=== PATIENT | female | born 1985 | race American Indian/Alaskan Native ===

== ENCOUNTER 2017-07-02 09:47 | Emergency (ER) | payer MEDICAID, OTHER ==
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
[2017-07-02 11:59] VITALS: BP 102/68
== END 2017-07-02 11:32 | disposition home or self-care (01) ==
LOC: ED 09:47
DX: O09.892 Supervision of other high risk pregnancies, second trimester (principal); Z3A.22 22 weeks gestation of pregnancy; V49.49XA Driver injured in collision with other motor vehicles in traffic accident, initial encounter; Y93.89 Activity, other specified; Y92.89 Other specified places as the place of occurrence of the external cause; Y99.8 Other external cause status
CPT/HCPCS: 93005; 93010

== ENCOUNTER 2017-10-09 07:09 | Outpatient (CLI) | payer MEDICAID ==
[2017-10-09 07:48] VITALS: BP 106/53
[2017-10-09] MEDS ORDERED: LACTATED RINGERS 500 ML IV ONE (08:03)
[2017-10-09 08:45] LABS: Bilirubin,Urine NEG (Negative); Blood,Urine NEG (Negative); Calcium Oxalate Crystals,Urine 2+; Color,Urine Yellow (Yellow); Mucus,Urine 3+ /HPF
== END 2017-10-09 09:27 | disposition home or self-care (01) ==
LOC: TRG 07:09
PROVIDERS: ATTEND Obstetrics & Gynecology
DX: O47.03 False labor before 37 completed weeks of gestation, third trimester (principal); Z3A.36 36 weeks gestation of pregnancy
CPT/HCPCS: 59025; 81001

== ENCOUNTER 2017-11-03 12:20 | Outpatient (CLI) | payer MEDICAID ==
[2017-11-03 13:40] VITALS: BP 106/62
== END 2017-11-03 14:02 | disposition home or self-care (01) ==
LOC: TRG 12:20
PROVIDERS: ATTEND Obstetrics & Gynecology
DX: O48.0 Post-term pregnancy (principal); Z3A.40 40 weeks gestation of pregnancy
CPT/HCPCS: 59025

== ENCOUNTER 2017-11-08 08:43 | Inpatient (IN) | payer MEDICAID ==
[2017-11-08] MEDS ORDERED: BRETHINE SUB-Q PRN (12:07)
[2017-11-08] MEDS ORDERED: MINERAL OIL PO PRN (12:07)
[2017-11-08] MEDS ORDERED: BRETHINE IVP PRN (12:07)
[2017-11-08] MEDS ORDERED: SUBLIMAZE IV PRN (12:07)
[2017-11-08] MEDS ORDERED: ePHEDrine SULFATE IV PRN (12:07)
[2017-11-08] MEDS: PITOCin/NS 30 UNIT/500ML 30 UNITS/500 ML BAG IV SCH (12:54)
[2017-11-08] MEDS ORDERED: PITOCin/NS 30 UNIT/500ML 30 UNITS/500 ML BAG IV SCH (13:00)
[2017-11-08] MEDS ORDERED: PITOCin/NS 20 UNIT/1000ML DRIP 20 UNITS/1,000 ML BAG IV SCH (13:00)
[2017-11-08] MEDS ORDERED: XYLOCAINE 2% INFILTRATI ONE (13:00)
[2017-11-08] MEDS ORDERED: CERVIDIL VG PRN (13:30)
[2017-11-08 13:37] LABS: Hematocrit 35.3 % (30.3-42.9); Hemoglobin 11.5 gm/dl (10.1-14.3); Mean Corpuscular HGB Conc 33 % (30-34); Mean Corpuscular Hemoglobin 31 pg (28-32); Mean Corpuscular Volume 94 fl (79-97); Platelet Count 152 K/mm3 (140-440); Red Blood Count 3.74 M/mm3 (3.65-5.03); Red Cell Distribution Width 14.9 % (13.2-15.2)
[2017-11-08] MEDS: STADOL IV PRN ×2 (19:53→22:16)
[2017-11-09] MEDS: STADOL IV PRN (00:51)
[2017-11-09] MEDS: LACTATED RINGERS 1,000 ML IV SCH ×2 (02:22→03:08)
--- NOTE | 2017-11-09 03:25 | Anesthesia Consultation ---
Anesthesia Consult and Med Hx Date of service: 11/09/17 - Airway Anesthetic Teeth Evaluation: Good ROM Head & Neck: Adequate Mental/Hyoid Distance: Adequate Mallampati Class: Class I Intubation Access Assessment: Good - Pulmonary Exam CTA: Yes - Cardiac Exam Cardiac Exam: RRR - Pre-Operative Health Status ASA Pre-Surgery Classification: ASA2 Proposed Anesthetic Plan: Epidural, Spinal - Pulmonary Hx Asthma: No COPD: No Hx Pneumonia: No - Cardiovascular System Hx Hypertension: No - Central Nervous System Hx Seizures: No Hx Psychiatric Problems: No - Endocrine Hx Renal Disease: No Hx End Stage Renal Disease: No Hx Hypothyroidism: No Hx Hyperthyroidism: No - Hematic Hx Anemia: No Hx Sickle Cell Disease: No - Other Systems Hx Alcohol Use: No
[2017-11-09] MEDS ORDERED: ePHEDrine SULFATE IV PRN (03:26)
[2017-11-09] MEDS ORDERED: NARCAN 2 MG/2 ML IV PRN (03:26)
--- NOTE | 2017-11-09 03:27 | History and Physical Report ---
History of Present Illness Date of examination: 11/09/17 Date of admission: 11/08/17 08:43 Chief complaint: IOL for post dates History of present illness: This is a 32 yo at 41 weeks admitted to labor and delivery for IOL.She is a patient of [facility]. Hx of hsv no lesions noted on valtrex. she has been non complaiant and missed 5 weeks of care in the third trimester. GBS neg. 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 denies: smoking, alcohol abuse, prescription drug abuse - Obstetrical History Expected Date of Delivery: 10/31/17 Actual Gestation: 41 Week(s) 2 Day(s) : 7 Para: 2 Hx # Term Pregnancies: 2 Number of Pregnancies: 0 Spontaneous Abortions: 0 Induced : 4 Number of Living Children: 2 Medications and Allergies Allergies Allergy/AdvReac Type Severity Reaction Status Date / Time No Known Allergies Allergy Verified 03/27/16 15:50 Home Medications Medication Instructions Recorded Confirmed Last Taken Type Pnv,Calcium 72/Iron/Folic Acid 1 tab PO DAILY 11/03/17 11/08/17 11/08/17 08:00 History [Pnv Plus Multivit Tab] valACYclovir [Valtrex] 1 tab PO DAILY 11/03/17 11/08/17 11/06/17 10:00 History 1 tab Active Meds: Active Medications Butorphanol Tartrate (Stadol) 2 mg IV Q2H PRN PRN Reason: Pain , Severe (7-10) Last Admin: 11/09/17 00:51 Dose: 2 mg Dinoprostone (Cervidil) 10 mg VG Q6H PRN PRN Reason: Cervical Ripening Last Admin: 11/08/17 14:02 Dose: 10 mg Ephedrine Sulfate (Ephedrine Sulfate) 10 mg IV Q2M PRN PRN Reason: Hypotension Fentanyl (Sublimaze) 100 mcg IV Q2H PRN PRN Reason: Labor Pain Lactated Ringer's (Lactated Ringers) 1,000 mls @ 125 mls/hr IV DIRECT MINDY Last Admin: 11/09/17 03:08 Dose: 125 mls/hr Oxytocin/Sodium Chloride (Pitocin/Ns 20 Unit/1000ml Drip) 20 units in 1,000 mls @ 125 mls/hr IV DIRECT MINDY Oxytocin/Sodium Chloride (Pitocin/Ns 30 Unit/500ml) 30 units in 500 mls @ 1 mls /hr IV TITR MINDY; Protocol Oxytocin/Sodium Chloride (Pitocin/Ns 30 Unit/500ml) 30 units in 500 mls @ 4 mls /hr IV TITR MINDY; Protocol Last Titration: 11/08/17 14:02 Dose: 0 ml/hr, 0 mls/hr Mineral Oil (Mineral Oil) 30 ml PO QHS PRN PRN Reason: Constipation Terbutaline Sulfate (Brethine) 0.25 mg SUB-Q ONCE PRN PRN Reason: Hyperstimulation/Hypertonicity Terbutaline Sulfate (Brethine) 0.25 mg IVP ONCE PRN PRN Reason: Hyperstimulation/Hypertonicity Review of Systems All systems: negative - Vital Signs Vital signs: Vital Signs Temp Pulse Resp BP Pulse Ox 98.2 F 89 18 104/65 99 11/08/17 09:11 11/08/17 09:11 11/08/17 09:11 11/08/17 09:11 11/08/17 09:11 Temp Pulse Resp BP Pulse Ox 98.0 F 98 H 22 108/55 98 11/09/17 02:26 11/09/17 03:20 11/09/17 02:26 11/09/17 03:20 11/09/17 03:17 - Physical Exam Breasts: Positive: normal Cardiovascular: Regular rate, Normal S1 Lungs: Positive: Clear to auscultation, Normal air movement Abdomen: Positive: normal appearance, soft, normal bowel sounds. Negative: distention, tenderness, guarding Genitourinary (Female): Positive: normal external genitalia, normal perenium Vulva: both: normal Vagina: Positive: normal moisture Uterus: Positive: normal size, normal contour Anus/Rectum: Positive: normal perianal skin Extremities: Positive: normal Deep Tendon Reflex Grade: Normal +2 - Obstetrical FHR: category 1 Cervical Dilatation: 1.5 Cervical Effacement Percentage: 50 station: -4 Uterine Contraction Pattern: Absent Uterine Tone Measurement Phase: Resting Results Result Diagrams: 11/08/17 13:10 All other labs normal. Assessment and Plan A/P IUP 41 weeks Term GBS neg iol with cervidil offer epidural at appropriate time expect vaginal delivery
[2017-11-09] MEDS: PITOCin/NS 30 UNIT/500ML 30 UNITS/500 ML BAG IV SCH (03:28)
[2017-11-09] MEDS ORDERED: fentaNYL-BUPIV 2 MCG/ML-0.125% 200 MCG/100 ML BAG EPIDURAL SCH (04:00)
--- NOTE | 2017-11-09 07:49 | Procedure Note ---
OB Delivery Note - Delivery Date of Delivery: 11/09/17 (8-6oz male @ 0711) Surgeon: ZENIA BENJAMIN - Vaginal Delivery presentation: vertex Delivery position: OA Delivery induction: cervidil Delivery augmentation: rupture of membranes, pitocin Delivery monitor: external FHT, external uterine Route of delivery: Delivery placenta: spontaneous Delivery cord: 3 umbilical vessels Delivery laceration: 1st degree Delivery repair: vicryl (2.[address] ) Anesthesia: epidural - A at 1 minute: 8 at 5 minutes: 9 Gender: Male
[2017-11-09] MEDS ORDERED: TYLENOL PO PRN (08:00)
[2017-11-09] MEDS ORDERED: ZOFRAN IV PRN (08:00)
[2017-11-09] MEDS ORDERED: BENADRYL PO PRN (08:00)
[2017-11-09] MEDS ORDERED: PHENERGAN PO PRN (08:00)
[2017-11-09] MEDS ORDERED: TUCKS PAD TP PRN (08:00)
[2017-11-09] MEDS ORDERED: PHENERGAN PR PRN (08:00)
[2017-11-09] MEDS ORDERED: LANSINOH TP PRN (08:00)
[2017-11-09] MEDS ORDERED: SODIUM CHLORIDE FLUSH SYRINGE 10 ML IV PRN (08:00)
[2017-11-09] MEDS ORDERED: DULCOLAX PR PRN (10:00)
[2017-11-09] MEDS: NORCO 5/325 PO PRN ×2 (16:21→22:55)
[2017-11-09] MEDS: PRENATAL VITAMIN PO SCH (16:21)
[2017-11-09] MEDS: MOTRIN PO SCH ×2 (18:09→22:56)
[2017-11-09] MEDS ORDERED: MILK OF MAGNESIA PO PRN (22:00)
[2017-11-09 22:40] LABS: Hematocrit 31.7 % (30.3-42.9); Hemoglobin 10.5 gm/dl (10.1-14.3)
[2017-11-10] MEDS: MOTRIN PO SCH ×2 (04:56→13:40)
--- NOTE | 2017-11-10 08:51 | Progress Note ---
Assessment and Plan O: PP H/H: A: Stable PP Day 1 P: Discharge Subjective - Subjective Date of service: 11/10/17 Patient reports: appetite normal, voiding normally, pain well controlled, flatus , ambulating normally, other (request 24hr discharge) [place]: doing well, nursing well Objective - Vital Signs Latest vital signs: Vital Signs Temp Pulse Resp BP BP Pulse Ox 11/10/17 00:00 98.0 F 80 18 101/56 11/09/17 23:56 20 11/09/17 23:55 20 11/09/17 22:56 18 11/09/17 22:55 20 11/09/17 16:26 98.5 F 83 18 115/41 99 11/09/17 11:43 98.4 F 71 18 94/37 98 11/09/17 09:50 98.6 F 100 H 20 110/54 11/09/17 08:54 105 H 92/64 11/09/17 08:50 73 18 92/64 Intake and Output 11/09/17 11/10/17 11/10/17 22:59 06:59 14:59 Intake Total 240 240 Balance 240 240 Intake: Oral 240 240 Other: Total, Intake Amount 240 240 # Voids Void 1 1 - Exam Breasts: Present: deferred Abdomen: Present: normal appearance, soft. Absent: distention, tenderness Uterus: Present: normal, firm, fundal height below umbilicus (2 below ) Extremities: Present: normal
--- NOTE | 2017-11-10 08:56 | Discharge Summary ---
Providers - Providers Date of Admission: 11/08/17 08:43 Date of discharge: 11/10/17 Attending physician: ZENIA BENJAMIN MD Primary care physician: ZENIA BENJAMIN MD Hospitalization Reason for admission: IUP at term Delivery: Laceration: vaginal side wall, 1st degree Other procedures: none complications: none Discharge diagnosis: IUP at term delivered [place] baby: male Condition at discharge: Good Disposition: DC-01 TO HOME OR SELFCARE Plan - Discharge Medications Prescriptions: HYDROcodone/APAP 5-325 [[place] 5-325 mg TAB] 2 each PO Q6H PRN #20 tablet PRN Reason: Pain, Moderate (4-6) Ibuprofen [Motrin 600 MG tab] 600 mg PO Q6H PRN #30 tablet PRN Reason: moderate pain - Provider Discharge Summary Activity: routine, no sex for 6 weeks, no heavy lifting 4 weeks, no strenuous exercise Diet: routine Instructions: routine Additional instructions: [] Smoking cessation referral if applicable(refer to patient education folder for contact #) [] Refer to [facility]'s [facility] Booklet Call your doctor immediately for: * Fever > 100.5 * Heavy vaginal bleeding ( >1 pad per hour) * Severe persistent headache * Shortness of breath * Reddened, hot, painful area to leg or breast * Drainage or odor from incision. * Keep incision clean and dry at all times and follow doctor's instructions regarding bathing/showering - Follow up plan Follow up: ZENIA BENJAMIN MD [Primary Care Provider] - (RTO 4 weeks and call office for circumcision)
[2017-11-10] MEDS: PRENATAL VITAMIN PO SCH (10:37)
[2017-11-10 17:02] VITALS: BP 106/57
== END 2017-11-10 16:40 | disposition home or self-care (01) | DRG 774 ==
LOC: LD 08:43 → OB 11-09 09:54
PROVIDERS: ADMIT Obstetrics & Gynecology; ATTEND Obstetrics & Gynecology
PROC: 10E0XZZ Delivery of Products of Conception, External Approach (ICD-10-PCS; principal; 2017-11-10)
PROC: 0HQ9XZZ Repair Perineum Skin, External Approach (ICD-10-PCS; 2017-11-10)
PROC: 3E0P7VZ Introduction of Hormone into Female Reproductive, Via Natural or Artificial Opening (ICD-10-PCS; 2017-11-10)
PROC: 3E0R3BZ Introduction of Anesthetic Agent into Spinal Canal, Percutaneous Approach (ICD-10-PCS; 2017-11-10)
PROC: 00HU33Z Insertion of Infusion Device into Spinal Canal, Percutaneous Approach (ICD-10-PCS; 2017-11-10)
DX: O98.32 Other infections with a predominantly sexual mode of transmission complicating childbirth (principal); A60.00 Herpesviral infection of urogenital system, unspecified; O70.0 First degree perineal laceration during delivery; Z3A.41 41 weeks gestation of pregnancy; Z37.0 Single live birth
CPT/HCPCS: 36415; 85014; 85018; 85027; 86850; 86900; 86901; 99211; G0463; J0595; J2590; J7120

== ENCOUNTER 2020-01-10 21:23 | Emergency (ER) | payer MEDICAID ==
[2020-01-10 22:33] LABS: HCG Qualitative,Urine Negative (Negative)
[2020-01-10 22:37] LABS: Bacteria,Urine 1+ /HPF (Negative); Bilirubin,Urine NEG (Negative); Blood,Urine LG (Negative); Color,Urine Yellow (Yellow); Mucus,Urine FEW /HPF; Renal Epithelial Cells,Urine 2 /LPF; Urobilinogen,Urine < 2.0 mg/dL (<2.0)
[2020-01-10 22:39] LABS: RBC,Urine > 182.0 /HPF (0.0-6.0); WBC,Urine > 182.0 /HPF (0.0-6.0)
[2020-01-10] MEDS ORDERED: PHENAZOPYRIDINE 200 MG TAB PO ONE (23:14)
[2020-01-10] MEDS ORDERED: ACETAMINOPHEN 500 MG TAB PO ONE (23:14)
[2020-01-10] MEDS ORDERED: LIDOCAINE-MPF (1%) 10 MG/1 ML VIAL 5 ML INFILTRATI ONE (23:14)
--- NOTE | 2020-01-10 23:34 | Emergency Department Report ---
ED Female HPI - General Chief complaint: Urogenital-Female Stated complaint: UTI Source: patient Mode of arrival: Ambulatory Limitations: No Limitations - History of Present Illness Initial comments: Patient is a A0 34-year-old -[place] female with no past medical history presents to the ED with acute onset persistent suprapubic pressure, urinary frequency and urgency, hematuria, dysuria and low back pain for the last 2 days. Patient states that she has been taking [id number] medication with no relief. Patient denies abdominal pain, nausea, vomiting, diarrhea, dyspareunia, vaginal bleeding, vaginal discharge, traumatic injury or fall, cough, sore throat, chest pain, shortness of breath, fever, chills, change in vision or numbness and tingling or weakness of lower extremities bilaterally. MD Complaint: dysuria, other (Urinary frequency and urgency, suprapubic pressure, hematuria) -: Sudden, days(s) (2) Location: suprapubic, other (vaginal) Radiation: suprapubic, LLQ, R flank Severity: severe Severity scale (0 -10): 7 Quality: cramping, sharp Consistency: constant Improves with: none Worsens with: none Are you Now?: No Last Menstrual Period: 12/25/19 EDC: 09/30/20 Associated Symptoms: denies other symptoms, abdominal pain (suprapubic), headaches, loss of appetite, dysuria, hematuria. denies: vaginal discharge, vaginal bleeding, nausea/vomiting, fever/chills, rash, seizure, shortness of breath, syncope, weakness - Related Data Sexually active: Yes : 2 Para: 2 A: 0 Home Medications Medication Instructions Recorded Confirmed Last Taken Pnv,Calcium 72/Iron/Folic Acid 1 tab PO DAILY 11/03/17 11/08/17 11/08/17 08:00 [Pnv Plus Multivit Tab] valACYclovir [Valtrex] 1 tab PO DAILY 11/03/17 11/08/17 11/06/17 10:00 1 tab Previous Rx's Medication Instructions Recorded Last Taken Type HYDROcodone/APAP 5-325 [[place] 2 each PO Q6H PRN #20 tablet 11/10/17 Unknown Rx 5-325 mg TAB] Ibuprofen [Motrin 600 MG tab] 600 mg PO Q6H PRN #30 tablet 11/10/17 Unknown Rx Ibuprofen [Motrin] 800 mg PO Q8HR PRN #20 tablet 01/10/20 Unknown Rx Ondansetron [Zofran Odt] 4 mg PO Q6HR PRN #15 tab.rapdis 01/10/20 Unknown Rx Phenazopyridine [Pyridium] 200 mg PO TID #24 tab 01/10/20 Unknown Rx cephALEXin [Keflex] 500 mg PO Q6HR #40 capsule 01/10/20 Unknown Rx Allergies Allergy/AdvReac Type Severity Reaction Status Date / Time No Known Allergies Allergy Verified 03/27/16 15:50 ED Review of Systems ROS: Stated complaint: UTI Other details as noted in HPI Constitutional: denies: chills, fever Eyes: denies: eye pain, eye discharge, vision change ENT: denies: ear pain, throat pain Respiratory: denies: cough, shortness of breath, wheezing Cardiovascular: denies: chest pain, palpitations Endocrine: no symptoms reported Gastrointestinal: abdominal pain (suprapubic). denies: nausea, diarrhea Genitourinary: urgency, dysuria, frequency, hematuria. denies: discharge Musculoskeletal: back pain (lower). denies: joint swelling, arthralgia Skin: denies: rash, lesions Neurological: denies: headache, weakness, paresthesias Psychiatric: denies: anxiety, depression Hematological/Lymphatic: denies: easy bleeding, easy bruising ED Past Medical Hx - Past Medical History Previous Medical History?: Yes Hx Hypertension: No Hx Congestive Heart Failure: No Hx Diabetes: No Hx Deep Vein Thrombosis: No Hx Renal Disease: No Hx Sickle Cell Disease: No Hx Seizures: No Hx Asthma: No Hx COPD: No Hx HIV: No Additional medical history: Vaginal delivery x 2 - Surgical History Past Surgical History?: No - Social History Smoking Status: Former Smoker Substance Use Type: None - Medications Home Medications: Home Medications Medication Instructions Recorded Confirmed Last Taken Type Pnv,Calcium 72/Iron/Folic Acid 1 tab PO DAILY 11/03/17 11/08/17 11/08/17 08:00 History [Pnv Plus Multivit Tab] valACYclovir [Valtrex] 1 tab PO DAILY 11/03/17 11/08/17 11/06/17 10:00 History 1 tab HYDROcodone/APAP 5-325 [[place] 2 each PO Q6H PRN #20 tablet 11/10/17 Unknown Rx 5-325 mg TAB] Ibuprofen [Motrin 600 MG tab] 600 mg PO Q6H PRN #30 tablet 11/10/17 Unknown Rx Ibuprofen [Motrin] 800 mg PO Q8HR PRN #20 tablet 01/10/20 Unknown Rx Ondansetron [Zofran Odt] 4 mg PO Q6HR PRN #15 tab.rapdis 01/10/20 Unknown Rx Phenazopyridine [Pyridium] 200 mg PO TID #24 tab 01/10/20 Unknown Rx cephALEXin [Keflex] 500 mg PO Q6HR #40 capsule 01/10/20 Unknown Rx ED Physical Exam - General Limitations: No Limitations General appearance: alert, in no apparent distress - Head Head exam: Present: atraumatic, normocephalic, normal inspection - Eye Eye exam: Present: normal appearance, PERRL, EOMI Pupils: Present: normal accommodation - ENT ENT exam: Present: normal exam, normal orophraynx, mucous membranes moist, TM's normal bilaterally, normal external ear exam - Neck Neck exam: Present: normal inspection, full ROM - Respiratory Respiratory exam: Present: normal lung sounds bilaterally. Absent: respiratory distress, wheezes, rales, rhonchi, chest wall tenderness, accessory muscle use, decreased breath sounds - Cardiovascular Cardiovascular Exam: Present: normal rhythm, tachycardia, normal heart sounds. Absent: systolic murmur, diastolic murmur, rubs, gallop - GI/Abdominal GI/Abdominal exam: Present: soft, normal bowel sounds. Absent: tenderness, guarding, hyperactive bowel sounds, hypoactive bowel sounds, organomegaly - Bi-manual exam: Present: other (Pelvic exam deferred) - Extremities Exam Extremities exam: Present: normal inspection, full ROM, normal capillary refill. Absent: pedal edema - Back Exam Back exam: Present: normal inspection, full ROM. Absent: tenderness, CVA tenderness (R), CVA tenderness (L), muscle spasm, paraspinal tenderness, vertebral tenderness - Neurological Exam Neurological exam: Present: alert, oriented X3, CN II-XII intact, normal gait, reflexes normal - Psychiatric Psychiatric exam: Present: normal affect, normal mood - Skin Skin exam: Present: warm, dry, intact, normal color. Absent: rash ED Course Vital Signs 01/10/20 01/11/20 21:28 00:01 Temperature 98.9 F 98.8 F Pulse Rate 102 H 87 Respiratory 18 18 Rate Blood Pressure 115/83 Blood Pressure 123/70 [Left] O2 Sat by Pulse 100 98 Oximetry ED Medical Decision Making - Medical Decision Making This is a A0 34-year-old -[place] female with no past medical history presents to the ED with acute onset persistent suprapubic pressure, urinary frequency and urgency, hematuria, dysuria and low back pain for the last 2 days. Patient states that she has been taking [id number] medication with no relief. In the ED, patient is alert and oriented x3 and is not in any distress. Urinalysis shows significant urinary tract infection. Patient was treated in the ED with Rocephin 1 g intramuscular injection, Tylenol and Pyridium. Patient will discharge home on antibiotics and pain medication and was advised to follow-up with [facility]ANT physician or primary care physician in 7 to 10 days for reevaluation or return to the ED immediately if symptoms get worse. - Differential Diagnosis UTI; Kidney stones; Bladder spasms; ovarian cyst Critical care attestation.: If time is entered above; I have spent that time in minutes in the direct care of this critically ill patient, excluding procedure time. ED Disposition Clinical Impression: Acute urinary tract infection, Acute cystitis with hematuria Disposition: TO HOME OR SELFCARE Is pt being admited?: No Does the pt Need Aspirin: No Condition: Stable Instructions: Urinary Tract Infection in Women (ED), Flank Pain (ED) Additional Instructions: Take medication with food, drink plenty of fluids and follow-up with your primary care physician in 7 to 10 days for reevaluation. Return to the ED immediately if symptoms get worse. Prescriptions: cephALEXin [Keflex] 500 mg PO Q6HR #40 capsule Ibuprofen [Motrin] 800 mg PO Q8HR PRN #20 tablet PRN Reason: Pain , Severe (7-10) Phenazopyridine [Pyridium] 200 mg PO TID #24 tab Ondansetron [Zofran Odt] 4 mg PO Q6HR PRN #15 tab.rapdis PRN Reason: Nausea Referrals: PRIMARY CARE, [Primary Care Provider] - 3-5 Days [facility] [Provider Group] - 3-5 Days Forms: Work/School Release Form(ED) Time of Disposition: 23:35 Print Language: [id number]
[2020-01-11 00:02] VITALS: BP 123/70
== END 2020-01-11 00:03 | disposition home or self-care (01) ==
LOC: ED 21:23
DX: N39.0 Urinary tract infection, site not specified (principal); N30.01 Acute cystitis with hematuria
CPT/HCPCS: 81001; 81025; 96372; 99283; J0696

== ENCOUNTER 2020-08-08 16:47 | Emergency (ER) | payer SELFPAY ==
[2020-08-08 16:55] VITALS: BP 104/71
[2020-08-08 18:14] LABS: HCG Qualitative,Urine Negative (Negative)
[2020-08-08 18:20] LABS: Bilirubin,Urine NEG (Negative); Blood,Urine NEG (Negative); Color,Urine Yellow (Yellow); Mucus,Urine 3+ /HPF; Protein,Urine <15 mg/dL mg/dL (Negative)
--- NOTE | 2020-08-08 18:55 | Emergency Department Report ---
ED General Adult HPI - General Chief complaint: Urogenital-Female Stated complaint: LT FOOT Time Seen by Provider: 08/08/20 16:59 Source: patient Mode of arrival: Ambulatory Limitations: No Limitations - History of Present Illness Initial comments: Patient is a 35-year-old female presents emergency room complaints of chronic left knee pain which she has had for 5 months. She was evaluated in the emergency department in April 2020 for her left knee pain and had a x-ray at that time which showed an effusion but otherwise no abnormality. She never followed up with orthopedic doctor. She is ambulatory without difficulty. She denies any numbness or weakness. Patient states that she also has "bacterial vaginosis". She states that she has a watery discharge with a fishy odor. She states that she has associated dysuria. She states that she has some suprapubic abdominal discomfort. She denies any fever, nausea, vomiting, diarrhea, chills, back pain. Patient states that she has also had a nail avulsion to the right thumb for a couple of weeks. No past medical history. No allergies to medications. She states that she is sexually active but reports that she does not have any STDs and she does not want any STD treatment. She declines STD treatment. Severity scale (0 -10): 8 - Related Data Home Medications Medication Instructions Recorded Confirmed Last Taken Pnv,Calcium 72/Iron/Folic Acid 1 tab PO DAILY 11/03/17 11/08/17 11/08/17 08:00 [Pnv Plus Multivit Tab] valACYclovir [Valtrex] 1 tab PO DAILY 11/03/17 11/08/17 11/06/17 10:00 1 tab Previous Rx's Medication Instructions Recorded Last Taken Type HYDROcodone/APAP 5-325 [[place] 2 each PO Q6H PRN #20 tablet 11/10/17 Unknown Rx 5-325 mg TAB] Ibuprofen [Motrin 600 MG tab] 600 mg PO Q6H PRN #30 tablet 11/10/17 Unknown Rx Ibuprofen [Motrin] 800 mg PO Q8HR PRN #20 tablet 01/10/20 Unknown Rx Ondansetron [Zofran Odt] 4 mg PO Q6HR PRN #15 tab.rapdis 01/10/20 Unknown Rx Phenazopyridine [Pyridium] 200 mg PO TID #24 tab 01/10/20 Unknown Rx cephALEXin [Keflex] 500 mg PO Q6HR #40 capsule 01/10/20 Unknown Rx Acetaminophen/Codeine [Tylenol 1 tab PO Q6H PRN #8 tab 04/21/20 Unknown Rx /Codeine # 3 tab] Ketorolac [Toradol] 10 mg PO Q6H PRN 5 Days #15 tablet 04/21/20 Unknown Rx Naproxen [EC-Naprosyn] 500 mg PO BID PRN #14 tablet.dr 08/08/20 Unknown Rx cephALEXin [Keflex] 500 mg PO BID 7 Days #14 capsule 08/08/20 Unknown Rx metroNIDAZOLE [Flagyl] 500 mg PO BID 7 Days #14 tab 08/08/20 Unknown Rx Allergies Allergy/AdvReac Type Severity Reaction Status Date / Time No Known Allergies Allergy Verified 03/27/16 15:50 ED Review of Systems ROS: Stated complaint: LT FOOT Other details as noted in HPI Comment: All other systems reviewed and negative ED Past Medical Hx - Past Medical History Previous Medical History?: No Hx Hypertension: No Hx Congestive Heart Failure: No Hx Diabetes: No Hx Deep Vein Thrombosis: No Hx Renal Disease: No Hx Sickle Cell Disease: No Hx Seizures: No Hx Asthma: No Hx COPD: No Hx HIV: No Additional medical history: Vaginal delivery x 2 - Surgical History Past Surgical History?: No - Social History Smoking Status: Never Smoker Substance Use Type: None - Medications Home Medications: Home Medications Medication Instructions Recorded Confirmed Last Taken Type Pnv,Calcium 72/Iron/Folic Acid 1 tab PO DAILY 11/03/17 11/08/17 11/08/17 08:00 History [Pnv Plus Multivit Tab] valACYclovir [Valtrex] 1 tab PO DAILY 11/03/17 11/08/17 11/06/17 10:00 History 1 tab HYDROcodone/APAP 5-325 [[place] 2 each PO Q6H PRN #20 tablet 11/10/17 Unknown Rx 5-325 mg TAB] Ibuprofen [Motrin 600 MG tab] 600 mg PO Q6H PRN #30 tablet 11/10/17 Unknown Rx Ibuprofen [Motrin] 800 mg PO Q8HR PRN #20 tablet 01/10/20 Unknown Rx Ondansetron [Zofran Odt] 4 mg PO Q6HR PRN #15 tab.rapdis 01/10/20 Unknown Rx Phenazopyridine [Pyridium] 200 mg PO TID #24 tab 01/10/20 Unknown Rx cephALEXin [Keflex] 500 mg PO Q6HR #40 capsule 01/10/20 Unknown Rx Acetaminophen/Codeine [Tylenol 1 tab PO Q6H PRN #8 tab 04/21/20 Unknown Rx /Codeine # 3 tab] Ketorolac [Toradol] 10 mg PO Q6H PRN 5 Days #15 tablet 04/21/20 Unknown Rx Naproxen [EC-Naprosyn] 500 mg PO BID PRN #14 tablet.dr 08/08/20 Unknown Rx cephALEXin [Keflex] 500 mg PO BID 7 Days #14 capsule 08/08/20 Unknown Rx metroNIDAZOLE [Flagyl] 500 mg PO BID 7 Days #14 tab 08/08/20 Unknown Rx ED Physical Exam - General Limitations: No Limitations General appearance: alert, in no apparent distress - Head Head exam: Present: atraumatic, normocephalic - Eye Eye exam: Present: normal appearance - ENT ENT exam: Present: mucous membranes moist - Respiratory Respiratory exam: Present: normal lung sounds bilaterally. Absent: respiratory distress, wheezes, rales, rhonchi, stridor, chest wall tenderness, accessory muscle use, decreased breath sounds, prolonged expiratory - Cardiovascular Cardiovascular Exam: Present: regular rate, normal rhythm, normal heart sounds. Absent: systolic murmur, diastolic murmur, rubs, gallop - GI/Abdominal GI/Abdominal exam: Present: soft, normal bowel sounds. Absent: distended, tenderness, guarding, rebound, rigid - Extremities Exam Extremities exam: Present: normal capillary refill (neurovascularly intact throughout), other (previous nail avulsion to the right thumb nail, no edema, no erythema, no signs of infection, no signs of paronychia, mild edema present to the left knee, no ttp of the left knee, FROM Of the LLE, she is able to flex the knee past 90 degrees, there is no erythema, no increased warmth) - Neurological Exam Neurological exam: Present: alert, oriented X3 - Psychiatric Psychiatric exam: Present: normal affect, normal mood - Skin Skin exam: Present: warm, dry ED Course Vital Signs 08/08/20 16:51 Temperature 97.9 F Pulse Rate 95 H Respiratory 18 Rate Blood Pressure 104/71 [Right] O2 Sat by Pulse 100 Oximetry ED Medical Decision Making - Medical Decision Making Patient is a 35-year-old female presents emergency room complaints of chronic left knee pain which she has had for 5 months. She was evaluated in the emergency department in April 2020 for her left knee pain and had a x-ray at that time which showed an effusion but otherwise no abnormality. She never followed up with orthopedic doctor. She is ambulatory without difficulty. She denies any numbness or weakness. Patient states that she also has "bacterial vaginosis". She states that she has a watery discharge with a fishy odor. She states that she has associated dysuria. She states that she has some suprapubic abdominal discomfort. She denies any fever, nausea, vomiting, diarrhea, chills, back pain. Patient states that she has also had a nail avulsion to the right thumb for a couple of weeks. No past medical history. No allergies to medications. She states that she is sexually active but reports that she does not have any STDs and she does not want any STD treatment. She declines STD treatment. vitals are normal. on exam: previous nail avulsion to the right thumb nail, no edema, no erythema, no signs of infection, no signs of paronychia, mild edema present to the left knee, no ttp of the left knee, FROM Of the LLE, she is able to flex the knee past 90 degrees, there is no erythema, no increased warmth, neurovascularly intact throughout. Examination appears consistent with mild joint effusion, she is able to flex greater than 90 degrees, no signs of septic joint, does not need emergent arthrocentesis. Symptoms also consistent with previous nail avulsion, no signs of infection or paronychia. Patient has no abdominal tenderness on exam, no guarding, no rebound, no rigidity, normal bowel sounds, no peritoneal signs. UA shows evidence of mild UTI. Advised patient that she would be given a prescription for Keflex and Flagyl and could take Tylenol or ibuprofen as needed for discomfort. Patient became angered and wanted to receive narcotics while in the emergency department, patient does not have any clinical indication for narcotics at this time. I wrote patient's prescriptions and typed up her paperwork, I was advised by nurse that patient eloped prior to receiving her paperwork or her prescriptions. Critical care attestation.: If time is entered above; I have spent that time in minutes in the direct care of this critically ill patient, excluding procedure time. ED Disposition Clinical Impression: Nail avulsion Chronic knee pain Qualifiers: Laterality: left Qualified Code(s): M25.562 - Pain in left knee UTI (urinary tract infection) Qualifiers: Urinary tract infection type: acute cystitis Hematuria presence: without hematuria Qualified Code(s): N30.00 - Acute cystitis without hematuria Vaginitis Qualifiers: Chronicity: acute Qualified Code(s): N76.0 - Acute vaginitis Disposition: ELOPED Is pt being admited?: No Does the pt Need Aspirin: No Condition: Stable Instructions: Nail Avulsion, Urinary Tract Infection, Adult, [id number], Chronic Knee Pain, Adult, Vaginitis Additional Instructions: Please take medication as prescribed. Please follow-up with primary care doctor. Please follow-up with orthopedic doctor. Return to emergency room for any new or worsening symptoms. Prescriptions: Naproxen [EC-Naprosyn] 500 mg PO BID PRN #14 tablet.dr PRN Reason: pain metroNIDAZOLE [Flagyl] 500 mg PO BID 7 Days #14 tab cephALEXin [Keflex] 500 mg PO BID 7 Days #14 capsule Referrals: PRIMARY CARE, [Primary Care Provider] - 2-3 Days SHAMA VAN MD [Staff Physician] - 2-3 Days [facility] [Provider Group] - 2-3 Days AMANDA ARROYO MD [Staff Physician] - 2-3 Days [facility] [Provider Group] - 2-3 Days Time of Disposition: 18:56 Print Language: ZIMBABWEAN
== END 2020-08-08 20:19 | disposition left against medical advice (07) ==
LOC: ED 16:47
DX: S61.101A Unspecified open wound of right thumb with damage to nail, initial encounter (principal); N39.0 Urinary tract infection, site not specified; N76.0 Acute vaginitis; Z79.899 Other long term (current) drug therapy; X58.XXXA Exposure to other specified factors, initial encounter; Y93.89 Activity, other specified; Y92.89 Other specified places as the place of occurrence of the external cause; Y99.8 Other external cause status
CPT/HCPCS: 81001; 81025; 87086; 99282

== ENCOUNTER 2020-08-14 15:57 | Emergency (ER) | payer SELFPAY ==
[2020-08-14 16:46] VITALS: BP 120/101
--- NOTE | 2020-08-14 16:48 | Emergency Department Report ---
Chief Complaint: Urogenital-Female Stated Complaint: POSSIBLE UTI/RT THUMB INFECTION Time Seen by Provider: 08/14/20 16:47 - HPI History of Present Illness: Patient is a 35-year-old female who was evaluated here a couple of days ago and left with document prescriptions. Patient states that she had to leave to go to work and is here to get her and prescriptions. Patient denies any new symptoms - ROS Review of Systems: As noted in HPI - Exam Vital Signs: Vital Signs 08/14/20 16:45 Temperature 98.7 F Pulse Rate 86 Respiratory 18 Rate Blood Pressure 120/101 O2 Sat by Pulse 94 Oximetry Physical Exam: GENERAL: Alert and oriented x3, no apparent distress, Normal Gait, atraumatic. MSE screening note: Focused history and physical exam performed. Due to findings the following was ordered: ED Medical Decision Making - Medical Decision Making 35-year-old female presents to the ED to of her prescriptions. Patient was treated for vaginosis Reviewed notes from last visit. All work-up was done from the last visit. I printed out prescriptions for patient and instructions and referrals to follow-up. Patient had no medical emergencies throughout ED stay. She is alert and oriented x3 is in no acute distress she understands instructions. ED Disposition for MSE Clinical Impression: UTI (urinary tract infection), Nail avulsion Disposition: TO HOME OR SELFCARE Condition: Stable Instructions: Urinary Tract Infection, Adult Prescriptions: metroNIDAZOLE [Flagyl TAB] 500 mg PO BID 7 Days #14 tab cephALEXin [Keflex] 500 mg PO BID 7 Days #14 capsule Referrals: SHAMA VAN MD [Staff Physician] - 3-5 Days Forms: Work/School Release Form(ED)
== END 2020-08-14 17:13 | disposition home or self-care (01) ==
LOC: ED 15:57
DX: S61.309A Unspecified open wound of unspecified finger with damage to nail, initial encounter (principal); N39.0 Urinary tract infection, site not specified; X58.XXXA Exposure to other specified factors, initial encounter; Y93.89 Activity, other specified; Y92.89 Other specified places as the place of occurrence of the external cause; Y99.8 Other external cause status
CPT/HCPCS: 99281